=== PATIENT | female | born 1980 | race Caucasian/White ===

== ENCOUNTER 2021-09-20 03:31 | Emergency (ER) | payer BC ==
[~2021-09-20] VITALS: Ht 167.6 cm; Wt 57.1 kg
[2021-09-20] MEDS ORDERED: WELLBUTRIN SR100 MG PO (03:42)
[2021-09-20] MEDS ORDERED: NORVASC10 MG PO (03:42)
[2021-09-20 03:58] LABS: ABSOLUTE NEUTROPHILS 5.6 thou/uL (1.4-8.2); BASOPHILS 0.4 % (0.0-2.0); EOSINOPHILS 0.6 % (0.0-3.0); HEMATOCRIT 44.7 % (37.0-47.0); HEMOGLOBIN 15.4 gm/dL (12.0-15.0); LYMPHOCYTES 19.8 % (24.0-44.0); MCHC 34.4 g/dL (28.0-37.0); MCV 90.2 fL (80.0-100.0); MONOCYTES 6.1 % (1.0-8.0); PLATELET COUNT 250 thou/uL (150-400); POLYS 73.1 % (36.0-66.0); RBC 4.96 mil/uL (4.20-5.00); WBC 7.7 thou/uL (4.0-11.0)
[2021-09-20 04:04] LABS: CALCIUM 9.7 mg/dL (8.5-10.1); CREATININE 0.8 mg/dL (0.6-1.0); POTASSIUM 3.2 mmol/L (3.5-5.1)
[2021-09-20 04:15] LABS: ALBUMIN 4.1 g/dL (3.4-5.0); TOTAL BILIRUBIN 0.6 mg/dL (0.2-1.0); TOTAL PROTEIN 7.7 g/dL (6.4-8.2)
[2021-09-20 05:05] VITALS: BP 137/86
--- NOTE | 2021-09-20 09:48 | EKG ---
[address] [address] [facility] [place] [address] ELECTROCARDIOGRAM REPORT Name: SHYANNE MARR JANICE [id number] Admission: 09/20/21 Attend Phys: Discharge: 09/20/21 Date of : 80 Report #: [id number] [facility] ED Test Date: 2021-09-20 Test Time: 04:55:28 Pat Name: SHYANNE MARR Department: Room: Gender: F Apartment Hotel Manager: MARLEE SRINIVASAN : 1980 Requested By: John Newsome Order Number: [id number] MD: Rocky Arias Measurements Intervals [place] Rate: 79 P: 76 SD: 153 QRS: 51 QRSD: 91 T: 22 QT: 374 QTc: 429 Interpretive Statements Sinus rhythm Compared to ECG 09/20/2021 03:40:59 T-wave abnormality no longer present Electronically Signed On 09-20-2021 9:48:09 BUSINESS DEVELOPMENT RECRUITER by Rocky Arias [email or web address] <ELECTRONICALLY SIGNED> By: Rocky Arias MD 09/20/21 0948 [id number] [id number] Rocky Arias MD /EPI
--- NOTE | 2021-09-20 09:48 | EKG ---
[address] [address] ELECTROCARDIOGRAM REPORT Name: SHYANNE MARRLASS [id number] Admission: 09/20/21 Attend Phys: Discharge: 09/20/21 Date of : 80 Report #: [id number] [facility] ED Test Date: 2021-09-20 Test Time: 03:40:59 Pat Name: SHYANNE MARR Department: Room: Gender: F Cut Off Saw Operator: MARLEE SRINIVASAN : 1980 Requested By: John Newsome Order Number: [id number] MD: Rocky Arias Measurements Intervals [place] Rate: 91 P: 86 [place]: 140 QRS: 59 QRSD: 90 T: -19 QT: 332 QTc: 409 Interpretive Statements Sinus rhythm Probable left atrial enlargement Borderline T abnormalities, inferior leads No previous ECG available for comparison Electronically Signed On 09-20-2021 9:48:15 PERSONAL FITNESS TRAINER by Rocky Arias [email or web address] <ELECTRONICALLY SIGNED> By: Rocky Arias MD 09/20/21 0948 [id number] [id number] Rocky Arias MD /EPI
== END 2021-09-20 05:15 | disposition home or self-care (01) ==
LOC: ER 03:31
PROVIDERS: Emergency Medicine
DX: R07.89 Other chest pain (principal); I10 Essential (primary) hypertension; Z79.899 Other long term (current) drug therapy